=== PATIENT | female | born 1935 | race Caucasian/White ===

== ENCOUNTER 2021-05-18 11:00 | Outpatient (CLI) | payer MEDICARE, BC ==
[2021-05-14 13:20] LABS: BASOPHILS % (AUTO) 0.5 % (0-1); EOSINOPHILS # (AUTO) 0.1 X10'3 (0-0.9); EOSINOPHILS % (AUTO) 1.6 % (0-6); LYMPHOCYTES # (AUTO) 2.2 X10'3 (1.1-4.8); MEAN CORPUSCULAR HEMOGLOBIN 31.9 PG (27.0-31.0); MEAN CORPUSCULAR HGB CONC 32.9 g/dL (33.0-36.5); MEAN CORPUSCULAR VOLUME 96.9 FL (78-98); MEAN PLATELET VOLUME 8.3 FL (7.4-10.4); MONOCYTES # (AUTO) 0.8 X10'3 (0-0.9); MONOCYTES % (AUTO) 10.2 % (2-12); NEUTROPHILS # (AUTO) 4.4 X10'3 (1.8-7.7); NEUTROPHILS % (AUTO) 58.7 % (42-75); PRE OP HEMATOCRIT 45.3 % (35.0-45.0); PRE OP HEMOGLOBIN 14.9 g/dL (12.0-16.0); PRE OP PLATELET COUNT 177 X10'3 (140-440); RED BLOOD COUNT 4.67 X10'6 (4.20-5.60); RED CELL DISTRIBUTION WIDTH 13.5 % (11.5-14.5)
[2021-05-14 13:51] LABS: ALBUMIN 3.6 G/DL (3.4-5.0); ALBUMIN/GLOBULIN RATIO 1.2 (1.1-1.5); ALKALINE PHOSPHATASE 54 IU/L (46-116); BLOOD UREA NITROGEN 23 MG/DL (7-18); BUN/CREATININE RATIO 32.4 (6.6-38.0); CALCIUM 8.4 MG/DL (8.5-10.1); CHLORIDE 109 MMOL/L (99-107); CREATININE 0.71 MG/DL (0.40-0.90); PRE OP ALT 18 U/L (30-65); PRE OP ANION GAP 4 (8-16); PRE OP AST 16 U/L (10-37); PRE OP BILIRUB, TOTAL 0.4 MG/DL (0.0-1.0); PRE OP GLUCOSE 79 MG/DL (70-104); PRE OP POTASSIUM 4.3 MMOL/L (3.4-5.1); PRE OP SODIUM 142 MMOL/L (135-145); TOTAL CARBON DIOXIDE 28.6 MMOL/L (24-32); TOTAL PROTEIN 6.7 G/DL (6.4-8.2); eGFR 79 ML/MIN
[~2021-05-18 11:00] MED LIST: ALBU8HFA PO; ALEN70TA37 PO
== END 2021-05-18 23:59 | disposition home or self-care (01) ==
LOC: EDSTATUS 11:00 → PRE-OP 11:00
PROVIDERS: ATTEND Orthopaedic Surgery Hand Surgery
DX: Z01.818 Encounter for other preprocedural examination (principal)
CPT/HCPCS: 36415; 80053; 85025; 93005; U0003; U0005

== ENCOUNTER 2021-06-11 07:34 | Day surgery (SDC) | payer MEDICARE, BC ==
[~2021-06-11] VITALS: Ht 12.7 cm; Wt 49.4 kg
[~2021-06-11 07:34] MED LIST changes: +BUPIVAcaine/PF 2.5mg/ml (0.25%) 10ml vial ONE; +cefazolin/dext.iso 2gm/100ml IV ONE; +famotidine 20mg tablet PO ONE; +ringers solution, lacted 1,000 ML IV SCH
[2021-06-11] MEDS ORDERED: aprepitant 40mg capsule PO ONE ×2 (09:31→09:35)
[2021-06-11] MEDS ORDERED: labetalol 20mg/4ml (5mg/ml) syringe IV PRN ×2 (09:40→11:55)
[2021-06-11] MEDS ORDERED: hydrALAZINE 20mg/ml inj. IV PRN ×2 (09:40→11:55)
[2021-06-11] MEDS ORDERED: proCHLORperazine 10 MG/2 ml inj IV PRN (09:40)
[2021-06-11] MEDS ORDERED: ondansetron/PF 4mg/2ml inj IV PRN ×2 (09:40→11:55)
[2021-06-11] MEDS ORDERED: ringers solution, lacted 1,000 ML IV SCH ×2 (09:40→11:55)
[2021-06-11] MEDS ORDERED: acetaminophen 1,000mg/100ml IV 100 ML IV PRN (09:40)
[2021-06-11] MEDS ORDERED: fentaNYL/PF 50MCG/1 ML 2ML syringe IV PRN ×4 (09:40→11:55)
[2021-06-11 09:41] LABS: BASOPHILS % (AUTO) 0.7 % (0-1); EOSINOPHILS # (AUTO) 0.1 X10'3 (0-0.9); EOSINOPHILS % (AUTO) 1.2 % (0-6); LYMPHOCYTES # (AUTO) 1.5 X10'3 (1.1-4.8); LYMPHOCYTES % (AUTO) 31.4 % (21-51); MEAN CORPUSCULAR HEMOGLOBIN 32.8 PG (27.0-31.0); MEAN CORPUSCULAR HGB CONC 34.1 g/dL (33.0-36.5); MEAN CORPUSCULAR VOLUME 96.3 FL (78-98); MEAN PLATELET VOLUME 8.8 FL (7.4-10.4); MONOCYTES # (AUTO) 0.4 X10'3 (0-0.9); MONOCYTES % (AUTO) 8.8 % (2-12); NEUTROPHILS # (AUTO) 2.8 X10'3 (1.8-7.7); NEUTROPHILS % (AUTO) 57.9 % (42-75); PRE OP HEMATOCRIT 44.2 % (35.0-45.0); PRE OP HEMOGLOBIN 15.1 g/dL (12.0-16.0); PRE OP PLATELET COUNT 175 X10'3 (140-440); RED CELL DISTRIBUTION WIDTH 13.4 % (11.5-14.5)
[2021-06-11 10:24] LABS: ALANINE AMINOTRANSFERASE 22 U/L (12-78); ALBUMIN 3.6 G/DL (3.4-5.0); ALBUMIN/GLOBULIN RATIO 1.2 (1.1-1.5); ALKALINE PHOSPHATASE 53 IU/L (46-116); ANION GAP 7 (8-16); ASPARTATE AMINO TRANSFERASE 16 U/L (10-37); BILIRUBIN,TOTAL 0.7 MG/DL (0.1-1.0); BLOOD UREA NITROGEN 17 MG/DL (7-18); BUN/CREATININE RATIO 23.9 (6.6-38.0); CALCIUM 8.6 MG/DL (8.5-10.1); CHLORIDE 110 MMOL/L (99-107); CREATININE 0.71 MG/DL (0.40-0.90); GLUCOSE 94 MG/DL (70-104); POTASSIUM 4.1 MMOL/L (3.5-5.1); SODIUM 143 MMOL/L (135-145); TOTAL PROTEIN 6.7 G/DL (6.4-8.2); eGFR 79 ML/MIN
[2021-06-11] MEDS ORDERED: BUPIVAcaine/PF 2.5mg/ml (0.25%) 10ml vial ONE (10:31)
[2021-06-11] MEDS ORDERED: morphine 4 MG/ML inj SYRINge IV PRN (11:55)
[2021-06-11] MEDS ORDERED: morphine 2 MG/ML inj. syringe IV PRN (11:55)
[2021-06-11 12:13] VITALS: BP 120/73
[2021-06-11 12:14] VITALS: BP 120/73
[2021-06-11] MEDS ORDERED: dexamethasone sod phosphate 10mg/ml inj ONE (12:16)
[2021-06-11] MEDS ORDERED: midazolam 1 mg/ML 2ml injection ONE (12:36)
[2021-06-11 13:12] VITALS: BP 108/80
--- NOTE | 2021-06-11 13:12 | NUR ---
Received from OR via , accompanied by Anesthesiologist DR RUIZ and report given by Anesthesiolgist. AWAKENS TO VOICE. VITALS STABLE. DRESSING DI. NATALIE PAIN. FINGERS WARM AND PINK.
[2021-06-11 13:22] VITALS: BP 120/66
[2021-06-11 13:32] VITALS: BP 128/75
--- NOTE | 2021-06-11 13:52 | NUR ---
AWAKE AND ORIENTED. VITALS STABLE. DRESSING DI. NATALIE PAIN. HOME WITH HER SPOUSE AT THIS TIME.
== END 2021-06-11 13:52 | disposition home or self-care (01) ==
LOC: PAS 07:34
PROVIDERS: ATTEND Orthopaedic Surgery Hand Surgery
DX: S66.012A Strain of long flexor muscle, fascia and tendon of left thumb at wrist and hand level, initial encounter (principal); M81.0 Age-related osteoporosis without current pathological fracture; J44.9 Chronic obstructive pulmonary disease, unspecified; Z98.41 Cataract extraction status, right eye; Z98.42 Cataract extraction status, left eye; Z79.899 Other long term (current) drug therapy; Z72.89 Other problems related to lifestyle; Z20.822 Contact with and (suspected) exposure to COVID-19; Z98.890 Other specified postprocedural states; X58.XXXA Exposure to other specified factors, initial encounter; Y93.89 Activity, other specified; Y92.89 Other specified places as the place of occurrence of the external cause; Y99.8 Other external cause status
CPT/HCPCS: 26490; 36415; 80053; 82948; 85025; 87635; C9803; J1100; J2250; J3490; J8501; Z7506; Z7512; A4215; A4618; A7000; J7120

== ENCOUNTER 2021-11-09 05:34 | Day surgery (SDC) | payer MEDICARE, BC ==
[2021-11-05 15:31] LABS: BASOPHILS % (AUTO) 0.6 % (0-1); EOSINOPHILS # (AUTO) 0.1 X10'3 (0-0.9); EOSINOPHILS % (AUTO) 1.9 % (0-6); LYMPHOCYTES # (AUTO) 1.9 X10'3 (1.1-4.8); LYMPHOCYTES % (AUTO) 28.2 % (21-51); MEAN CORPUSCULAR HEMOGLOBIN 32.3 PG (27.0-31.0); MEAN CORPUSCULAR HGB CONC 33.3 g/dL (33.0-36.5); MEAN CORPUSCULAR VOLUME 96.9 FL (78-98); MEAN PLATELET VOLUME 8.2 FL (7.4-10.4); MONOCYTES # (AUTO) 0.7 X10'3 (0-0.9); MONOCYTES % (AUTO) 10.4 % (2-12); NEUTROPHILS % (AUTO) 58.9 % (42-75); PRE OP HEMATOCRIT 44.7 % (35.0-45.0); PRE OP HEMOGLOBIN 14.9 g/dL (12.0-16.0); PRE OP PLATELET COUNT 182 X10'3 (140-440); RED BLOOD COUNT 4.61 X10'6 (4.20-5.60); RED CELL DISTRIBUTION WIDTH 14.2 % (11.5-14.5)
[2021-11-05 15:46] LABS: ALBUMIN 3.3 G/DL (3.4-5.0); ALBUMIN/GLOBULIN RATIO 1.2 (1.1-1.5); ALKALINE PHOSPHATASE 40 IU/L (46-116); BLOOD UREA NITROGEN 23 MG/DL (7-18); BUN/CREATININE RATIO 22.5 (6.6-38.0); CALCIUM 8.5 MG/DL (8.5-10.1); CHLORIDE 107 MMOL/L (99-107); CREATININE 1.02 MG/DL (0.40-0.90); PRE OP ALT 27 U/L (30-65); PRE OP ANION GAP 9 (8-16); PRE OP AST 19 U/L (10-37); PRE OP BILIRUB, TOTAL 0.3 MG/DL (0.0-1.0); PRE OP GLUCOSE 116 MG/DL (70-104); PRE OP POTASSIUM 4.6 MMOL/L (3.4-5.1); PRE OP SODIUM 145 MMOL/L (135-145); TOTAL CARBON DIOXIDE 29.4 MMOL/L (24-32); TOTAL PROTEIN 6.1 G/DL (6.4-8.2); eGFR 52 ML/MIN
[~2021-11-09] VITALS: Ht 152.4 cm; Wt 51.5 kg
[2021-11-09] VITALS (10 sets, daily range): BP systolic 99–146; BP diastolic 59–71
[~2021-11-09 05:34] MED LIST changes: -BUPIVAcaine/PF 2.5mg/ml (0.25%) 10ml vial ONE; +albuterol 2.5 MG/3 ML nebule NEB ONE; -cefazolin/dext.iso 2gm/100ml IV ONE; +cefazolin/dext.iso 2gm/50ml IV ONE
[2021-11-09] MEDS ORDERED: BUPIVAcaine 0.5% inj/PF 30 ML ONE (06:49)
[2021-11-09] MEDS ORDERED: LIDOcaine 1% 30ml preserv. free vial ONE (08:08)
[2021-11-09] MEDS ORDERED: midazolam 1 mg/ML 2ml injection ONE (08:30)
[2021-11-09] MEDS ORDERED: FENTANYL CITRATE/PF 50 MCG/1 ML VIAL ONE (08:30)
[2021-11-09] MEDS ORDERED: ketorolac trometh. 30mg/ml inj. ONE (09:02)
[2021-11-09] MEDS ORDERED: BUPIVAcaine 0.5% inj/PF 30 ml vial IJ ONE (09:20)
--- NOTE | 2021-11-09 09:52 | NUR ---
Received from OR via [facility] , accompanied by Anesthesiologist DR CARBAJAL and report given by Anesthesiolgist. PT PRESENT WITH PIV 20G RIGHT WRIST, DRSSING ON LEFT HAND TALAT LOPEZ AND ISSA, VSS. Addendum: 11/09/21 at 0959 by Franca Bentley RN, RN Amended: Links added.
--- NOTE | 2021-11-09 11:02 | NUR ---
PT HAS MET DC CRITERIA. DC IC CATHETER INTACT. ALL DC INSTRUCTIONS REVIEWED WITH PT, PT VERBLAIZED UNDERSTANDING WITH NO FURTHER QUESTIONS AT THIS TIME. PT WHEELED OUT TO VEHICLE, PT'S DROVE HER HOME. Addendum: 11/09/21 at 1316 by Franca Bentley RN, RN Amended: Links added.
== END 2021-11-09 11:02 | disposition home or self-care (01) ==
LOC: PAS 05:34
PROVIDERS: ATTEND Orthopaedic Surgery Hand Surgery
DX: T84.84XA Pain due to internal orthopedic prosthetic devices, implants and grafts, initial encounter (principal); M25.642 Stiffness of left hand, not elsewhere classified; J45.909 Unspecified asthma, uncomplicated; Z20.822 Contact with and (suspected) exposure to COVID-19; Z98.41 Cataract extraction status, right eye; Z72.89 Other problems related to lifestyle; Z98.890 Other specified postprocedural states; Z87.891 Personal history of nicotine dependence; Z79.899 Other long term (current) drug therapy; Y83.8 Other surgical procedures as the cause of abnormal reaction of the patient, or of later complication, without mention of misadventure at the time of the procedure; Y92.89 Other specified places as the place of occurrence of the external cause
CPT/HCPCS: 20680; 26440; 36415; 80053; 82948; 85025; 87635; C9803; J1885; J2250; J3010; J3490; J7030; J7120; S0020; Z7506; Z7512; A4215; A4618; A7000